=== PATIENT | female | born 1960 | race Caucasian/White ===

== ENCOUNTER 2017-10-01 02:53 | Emergency (ER) | payer OTHER ==
[2017-10-01] MEDS ORDERED: morphine 2 MG INJ IV (05:44)
[2017-10-01] MEDS: ONDANSETRON 4 MG INJ IV (05:55)
[2017-10-01] MEDS: KETOROLAC 30 MG INJ IV (05:55)
[2017-10-01] MEDS: LABETALOL HCL 20MG INJ IV (05:56)
[2017-10-01 06:11] LABS: ADD MAN DIFF? NO
[2017-10-01 06:14] LABS: BASOPHIL # 0.1 10^3/ul (0.0-0.1); BASOPHILS % 0.3 % (0.0-2.0); HEMATOCRIT 43.4 % (37.0-47.0); HEMOGLOBIN 14.3 g/dl (12.0-16.0); LYMPHOCYTES # 0.7 10^3/ul (0.8-2.9); LYMPHOCYTES % 4.2 % (15.0-51.0); MEAN CORPUSCULAR HEMOGLOBIN 28.8 pg (29.0-33.0); MEAN CORPUSCULAR HGB CONC 32.9 g/dl (32.0-37.0); MEAN CORPUSCULAR VOLUME 87.5 fl (82.0-101.0); MONOCYTE # 0.6 10^3/ul (0.3-0.9); MONOCYTES % 3.8 % (0.0-11.0); NEUTROPHILS % 91.1 % (39.0-77.0); PLATELET COUNT 179 10^3/UL (140-415); RED BLOOD COUNT 4.96 10^6/ul (4.20-5.40); RED CELL DISTRIBUTION WIDTH 12.9 % (11.5-14.5)
[2017-10-01 06:14] LABS: WHITE BLOOD COUNT 16.5 10^3/ul (4.8-10.8)
[2017-10-01] MEDS: hydrALAzine 20 MG INJ IV (06:20)
[2017-10-01 06:30] LABS: INR 0.98; PROTIME 13.1 Sec (11.9-14.9)
[2017-10-01 06:31] LABS: PARTIAL THROMBOPLASTIN TIME 28.5 Sec (25.0-35.0)
[2017-10-01 06:36] LABS: ANION GAP 17 (8-16); BLOOD UREA NITROGEN 10 mg/dl (7-20); CALCIUM 9.7 mg/dl (8.4-10.2); CARBON DIOXIDE 28 mmol/L (21-31); CHLORIDE 103 mmol/L (97-110); CREATININE 0.64 mg/dl (0.44-1.00); GLUCOSE 165 mg/dl (70-220); POTASSIUM 3.6 mmol/L (3.5-5.1); SODIUM 144 mmol/L (135-144)
[2017-10-01 06:47] LABS: TROPONIN-I 0.016 ng/ml (0.00-0.12)
[2017-10-01] MEDS: AZITHROMYCIN 250 MG TAB PO (07:04)
== END 2017-10-01 07:10 | disposition home or self-care (01) ==
LOC: E/R 07:10
DX: S20.211A Contusion of right front wall of thorax, initial encounter (principal); S63.641A Sprain of metacarpophalangeal joint of right thumb, initial encounter; S80.12XA Contusion of left lower leg, initial encounter; I16.0 Hypertensive urgency; V49.40XA Driver injured in collision with unspecified motor vehicles in traffic accident, initial encounter
CPT/HCPCS: 36415; 71045; 73590; 80048; 84484; 85025; 85610; 85730; 93005; 96374; 96375; 99285-25